=== PATIENT | female | born 1950 | race Caucasian/White ===

== ENCOUNTER 2020-10-23 12:28 | Inpatient (IN) | payer BC, MEDICARE ==
[~2020-10-23] VITALS: Ht 154.9 cm; Wt 58.0 kg
--- NOTE | 2020-10-23 14:46 | REP ---
INDICATION: sob. COMPARISON: None TECHNIQUE: Portable: The technique utilized in obtaining the radiograph has magnified the cardiac silhouette and attenuated the interstitial markings. FINDINGS: There is cardiomegaly accentuated by technique. There are bibasilar opacities right greater than left. There is irregular pleural thickening along the right lateral chest wall. The lateral border of the right scapula appears irregular . IMPRESSION: 1. Bibasilar opacities with CP angle blunting on the right as described above etiology uncertain. Chronic change versus acute disease with no priors for comparison. 2. Irregular appearing right lateral pleural thickening. 3. Suspect findings involving the lateral border of the right scapula and with no priors comparison. 4. Consider follow-up with diagnostic contrast-enhanced chest CT if clinically relevant. <Electronically signed by Teodoro Bhatia > 10/23/20 [id number]
[2020-10-23 15:05] LABS: HEMATOCRIT 31.1 % (36.0-47.0); HEMOGLOBIN 9.5 g/dl (12.0-15.5); MEAN CORPUSCULAR HEMOGLOBIN 28.3 pg (27.0-33.0); MEAN CORPUSCULAR HGB CONC 30.5 g/dl (32.0-36.5); MEAN CORPUSCULAR VOLUME 92.6 fl (80.0-96.0); PLATELET COUNT, AUTOMATED 142 10^3/uL (150-450); RED BLOOD COUNT 3.36 10^6/uL (4.00-5.40); WHITE BLOOD COUNT 10.9 10^3/uL (4.0-10.0)
[2020-10-23 15:30] LABS: ANISOCYTOSIS 1+; BASOPHILS 3 % (0-1); EOSINOPHILS 2 % (0-3); LYMPHOCYTES 37 % (16-44); METAMYELOCYTES 6 % (0-0); MONOCYTES 6 % (0-5); MYELOCYTES 1 % (0-0); NEUTROPHILS 38 % (28-66)
[2020-10-23 15:32] LABS: PLATELET ESTIMATE NORMAL (NORMAL); POLYCHROMASIA 2+
[2020-10-23 15:39] LABS: ALBUMIN 3.1 GM/DL (3.2-5.2); ALT/SGPT 126 U/L (12-78); BILIRUBIN,TOTAL 0.6 MG/DL (0.2-1.0); BLOOD UREA NITROGEN 15 MG/DL (7-18); CALCIUM LEVEL 10.6 MG/DL (8.8-10.2); CARBON DIOXIDE LEVEL 26 MEQ/L (21-32); CHLORIDE LEVEL 102 MEQ/L (98-107); CREATININE FOR GFR 0.44 MG/DL (0.55-1.30); GLOMERULAR FILTRATION RATE > 60.0 (>39); GLUCOSE, FASTING 97 MG/DL (70-100); POTASSIUM SERUM 3.7 MEQ/L (3.5-5.1); SODIUM LEVEL 140 MEQ/L (136-145); TOTAL PROTEIN 6.8 GM/DL (6.4-8.2)
[2020-10-23] MEDS ORDERED: MOM 30ML SUSPENSION UDC PO PRN (16:30)
[2020-10-23] MEDS ORDERED: oxyCODONE 5MG TAB PO ONE (16:30)
[2020-10-23] MEDS ORDERED: oxyCODONE 5MG TAB PO PRN ×2 (16:30)
[2020-10-23] MEDS ORDERED: PROMETHAZINE INJ 25 MG/ML VIAL (J2550) IV PRN (16:30)
[2020-10-23] MEDS ORDERED: amLODIPine 5 MG TAB PO PRN (16:35)
[2020-10-23] MEDS: NS 1,000 ML IV SCH (16:43)
[2020-10-23] MEDS ORDERED: ENOXAPARIN 40MG/0.4ML SYRINGE (J1650 PER 10MG) SC ONE (17:00)
[2020-10-23] MEDS: KETOROLAC 30 MG/ML 1ML VIAL IV SCH ×2 (17:45→22:03)
[2020-10-23] MEDS ORDERED: ISOSORBIDE DIN. (ISORDIL) 20 MG TAB PO SCH (18:00)
--- NOTE | 2020-10-23 19:19 | HPEPDOC ---
[facility] Medical History & Physical Date of Admission October 23, 2020 Date of Service: October 23, 2020 History and Physical CHIEF COMPLAINT: Recurrent Metastatic breast cancer to the liver, bones. Comfort measures only and hospice referral HISTORY OF PRESENT ILLNESS: 70-year-old female, DO NOT RESUSCITATE, DO NOT INTUBATE, comfort measures only with history of breast cancer status post bilateral mastectomy was sent by her pain management doctor aJneth from [place] for pain control and admission for comfort measures only and hospice referral. For the past few months, the patient has noted increasing mass in her neck and swollen lymph nodes involving the left axilla worsening back pain in the upper and lower back but has not sought any medical attention. 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 Multiple rib fractures and imaging. CT abdomen and pelvis [facility] 10/22/2020 shows diffuse metastatic disease involving musculoskeletal structure. Hepatic metastases identified and a pathologic fracture of third right inferior pubic ramus. There is a mass identified in the pelvis and the right hemisacrum extending across the midline measuring 7.8 x 3.9 cm there is a mass in the chest wall. The right chest measuring 2.2 x 1.7 cm and a soft tissue mass at the tail of the right breast measuring 3.8 x 3.3 cm extending to the skin which is thickened second mass in the anterior abdominal wall measuring 2.8 x 2.7, extending from the skin into the musculature into that region as well as in the left lower quadrant confined to the subcutaneous tissue measuring 1.[address] chest shows a large soft tissue mass encasing the right scapula extending along the right lateral chest wall encasing the area of the brachial plexus and diffuse bony metastatic disease, bilateral pleural effusions also identified. MRI of the cervical spine shows infiltrative process in the right lower paravertebral neck musculature involving the right brachial plexus. Multiple small lymph nodes in the right posterior triangle tumor versus infection. Degenerative disc disease of the cervical spine with spinal canal and neural foraminal stenosis. Patient has had the 5-10 pound weight loss at home, decreased appetite, decreased mobility, ambrosio ecially in her right upper extremity, difficulty ambulating, 5-10 feet without assistance. No syncope, chest pain, pressure, tightness, shortness of breath, fever or chills at home. She has had decrease in appetite and persistent pain in her back and arm for the past week. Hospitalist was asked to admit the patient for pain control, comfort measures only with no further evaluation PAST MEDICAL HISTORY: Breast cancer status post bilateral mastectomy 2006. Diet-controlled Diabetes. Colonic polyps PAST SURGICAL HISTORY: Bilateral mastectomy 2006, cholecystectomy, , D&C SOCIAL HISTORY: , DO NOT RESUSCITATE, DO NOT INTUBATE, comfort measures only. [facility] healthcare proxy [phone] Smoked in the 70s, none since. Denies recreational drug use FAMILY HISTORY: Mother with ovarian cancer. He lived into her 90s with hypertension, open heart surgery. Father age 90 with heart issues ALLERGIES: Please see below. REVIEW OF SYSTEMS: 10 point review of systems negative aside from positive findings in HPI HOME MEDICATIONS: Please see below. PHYSICAL EXAMINATION: VITAL SIGNS: See below GENERAL APPEARANCE: Cachectic bitemporal wasting, awake, alert, oriented to person, place, no pallor or icterus Mild distress but able to speak in full sentences HEENT: Significant lymphadenopathy in the right paraspinal musculature involving the right scapula. No JVD, thyromegaly. Dry mucous membranes CARDIOVASCULAR: S1, S2, regular rate, rhythm LUNGS: Diminished breath sounds bilaterally at the bases with crackles , Chest, right breast has a 3 cm x 3 cm soft tissue mass, nontender, mobile ABDOMEN: Positive bowel sounds, soft, nontender, nondistended, normoactive bowel sounds. 2 x 2 cm mobile mass in the left lower quadrant . EXTREMITIES NO CYANOSIS OR CLUBBING LABORATORY DATA: See below. IMAGING: [facility] CT chest, abdomen and pelvis, MRI cervical spine, all reviewed as documented in HPI MICROBIOLOGY: Please see below. ASSESSMENT: 70-year-old female, DO NOT RESUSCITATE, DO NOT INTUBATE, comfort measures only with history of breast cancer status post bilateral mastectomy was sent by her pain management doctor Janeth from [place] for pain control and admission for comfort measures only and hospice referral. For the past few months, the patient has noted increasing mass in her neck and swollen lymph nodes involving the left axilla worsening back pain in the upper and lower back but has not sought any medical attention. 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 Multiple rib fractures and imaging. CT abdomen and pelvis [facility] 10/22/2020 shows diffuse metastatic disease involving musculoskeletal structure. Hepatic metastases identified and a pathologic fracture of third right inferior pubic ramus. There is a mass identified in the pelvis and the right hemisacrum extending across the midline measuring 7.8 x 3.9 cm there is a mass in the chest wall. The right chest measuring 2.2 x 1.7 cm and a soft tissue mass at the tail of the right breast measuring 3.8 x 3.3 cm extending to the skin which is thickened second mass in the anterior abdominal wall measuring 2.8 x 2.7, extending from the skin into the musculature into that region as well as in the left lower quadrant confined to the subcutaneous tissue measuring 1.[address] chest shows a large soft tissue mass encasing the right scapula extending sarah ng the right lateral chest wall encasing the area of the brachial plexus and diffuse bony metastatic disease, bilateral pleural effusions also identified. MRI of the cervical spine shows infiltrative process in the right lower paravertebral neck musculature involving the right brachial plexus. Multiple small lymph nodes in the right posterior triangle tumor versus infection. Degenerative disc disease of the cervical spine with spinal canal and neural foraminal stenosis. Patient has had the 5-10 pound weight loss at home, decreased appetite, decreased mobility, especially in her right upper extremity, difficulty ambulating, 5-10 feet without assistance. No syncope, chest pain, pressure, tightness, shortness of breath, fever or chills at home. She has had decrease in appetite and persistent pain in her back and arm for the past week. 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 Patient is DO NOT RESUSCITATE, DO NOT INTUBATE, comfort measures only. Hospice referral in [facility] PFS to be consulted on Monday. Patient is on antiemetics when necessary pain medications. Bowel regimen and DVT prophylaxis Vital Signs Vital Signs Date Time Temp Pulse Resp B/P (MAP) Pulse Ox O2 Delivery O2 Flow Rate FiO2 10/23/20 18:13 94 17 95 Room Air 10/23/20 17:57 175/84 (114) 10/23/20 12:29 98.1 Laboratory Data Labs 24H Laboratory Tests 2 10/23/20 14:14: Immature Granulocyte % (Auto) , Neutrophils (%) (Auto) , Nucleated Red Blood Cells % (auto) 19.8H, Neutrophils 38, Band Neutrophils 7, Lymphocytes (Manual) 37, Monocytes (Manual) 6H, Eosinophils (Manual) 2, Basophils (Manual) 3H, Metamyelocytes 6H, Myelocytes 1H, Polychromasia 2+, Anisocytosis 1+, Schistocytes , Platelet Estimate NORMAL, Anion Gap 12, Glomerular Filtration Rate > 60.0, Calcium Level 10.6H, Total Bilirubin 0.6, Aspartate Amino Transf (AST/SGOT) 169H, Alanine Aminotransferase (ALT/SGPT) 126H, Alkaline Phosphatase 477H, Total Protein 6.8, Albumin 3.1L, Albumin/Globulin Ratio 0.8L CBC/BMP Laboratory Tests 10/23/20 14:14 Microbiology Microbiology 10/23/20 Respiratory Virus Panel (PCR) ([facility]) - Final, Complete Home Medications No Active Prescriptions or Reported Meds Allergies Coded Allergies: TAPE (Verified Allergy, Intermediate, rash, 10/23/20) atenolol (Verified Allergy, Unknown, 10/23/20) lisinopril (Verified Allergy, Unknown, 10/23/20) A-FIB/CHADSVASC A-FIB History Current/History of A-Fib/PAF?: No Age/Risk Factor Scoring CHADSVASC: [facility]ASC Response (Comments) Value Age Risk Factor Age 65-74 years old 1 Gender Risk Factor Female 1 Hx of CHF No 0 Hx of HTN No 0 Hx of Stroke/TIA/or VTE No 0 Hx of Diabetes Yes 1 Hx of Vascular Disease No 0 Total 3 Treatment Treatment ordered: NONE MIESHA AGUILAR MD October 23, 2020 19:19
[2020-10-23] MEDS ORDERED: ISOSORBIDE DIN. (ISORDIL) 20 MG TAB PO PRN (19:20)
[2020-10-23] MEDS ORDERED: ISOSORBIDE DIN. (ISORDIL) 30 MG TAB PO ONE (19:20)
[2020-10-23] MEDS ORDERED: **hydrALAZINE** 10 MG TAB PO PRN (19:20)
[2020-10-23 19:57] VITALS: BP 148/75
[2020-10-23] MEDS: ACETAMINOPHEN 500 MG TAB PO SCH (20:59)
[2020-10-23] MEDS: NYSTATIN 100,000 UNITS/GM TOPICAL PWD 15 GM TOP SCH (22:00)
[2020-10-23 22:04] VITALS: BP 158/71
[2020-10-24] MEDS: NS 1,000 ML IV SCH (03:53)
[2020-10-24] MEDS: KETOROLAC 30 MG/ML 1ML VIAL IV SCH ×4 (04:16→22:33)
[2020-10-24 06:00] VITALS: BP 156/67
[2020-10-24 06:36] LABS: HEMATOCRIT 25.6 % (36.0-47.0); HEMOGLOBIN 7.9 g/dl (12.0-15.5); MEAN CORPUSCULAR HEMOGLOBIN 28.4 pg (27.0-33.0); MEAN CORPUSCULAR HGB CONC 30.9 g/dl (32.0-36.5); MEAN CORPUSCULAR VOLUME 92.1 fl (80.0-96.0); PLATELET COUNT, AUTOMATED 118 10^3/uL (150-450); RED BLOOD COUNT 2.78 10^6/uL (4.00-5.40); WHITE BLOOD COUNT 9.7 10^3/uL (4.0-10.0)
[2020-10-24 07:15] LABS: BLOOD UREA NITROGEN 16 MG/DL (7-18); CALCIUM LEVEL 9.9 MG/DL (8.8-10.2); CARBON DIOXIDE LEVEL 27 MEQ/L (21-32); CHLORIDE LEVEL 104 MEQ/L (98-107); CREATININE FOR GFR 0.45 MG/DL (0.55-1.30); GLOMERULAR FILTRATION RATE > 60.0 (>39); GLUCOSE, FASTING 99 MG/DL (70-100); POTASSIUM SERUM 3.6 MEQ/L (3.5-5.1); SODIUM LEVEL 141 MEQ/L (136-145)
[2020-10-24 07:39] LABS: BASOPHILS 2 % (0-1); EOSINOPHILS 2 % (0-3); LYMPHOCYTES 32 % (16-44); METAMYELOCYTES 7 % (0-0); MONOCYTES 4 % (0-5); MYELOCYTES 5 % (0-0); NEUTROPHILS 37 % (28-66)
[2020-10-24 07:41] LABS: POLYCHROMASIA 1+
[2020-10-24 07:42] LABS: PLATELET ESTIMATE DECREASED (NORMAL); SCHISTOCYTES 1+
[2020-10-24] MEDS ORDERED: oxyCODONE 5MG TAB PO PRN (08:05)
[2020-10-24] MEDS ORDERED: **hydrALAZINE** 10 MG TAB PO PRN (08:20)
[2020-10-24] MEDS ORDERED: oxyCODONE 5MG TAB PO ONE (08:30)
[2020-10-24] MEDS ORDERED: ISOSORBIDE DIN. (ISORDIL) 20 MG TAB PO ONE (09:00)
[2020-10-24] MEDS ORDERED: SENOKOT S TAB PO ONE (09:00)
[2020-10-24] MEDS: MOM 30ML SUSPENSION UDC PO SCH ×2 (09:13→10:39)
[2020-10-24] MEDS: NYSTATIN 100,000 UNITS/GM TOPICAL PWD 15 GM TOP SCH ×2 (09:13→20:33)
[2020-10-24] MEDS: ENOXAPARIN 40MG/0.4ML SYRINGE (J1650 PER 10MG) SC SCH (09:14)
[2020-10-24] MEDS: ACETAMINOPHEN 500 MG TAB PO SCH ×3 (09:15→20:34)
[2020-10-24] MEDS: oxyCODONE 10 MG CR TAB PO SCH ×2 (09:16→20:33)
[2020-10-24 14:00] VITALS: BP 114/55
[2020-10-24] MEDS: traZODone 25MG PER 1/2 TABLET PO PRN (20:33)
[2020-10-24] MEDS: LIDOCAINE 5% (LIDODERM) PATCH TD SCH (20:34)
[2020-10-25] MEDS: KETOROLAC 30 MG/ML 1ML VIAL IV SCH ×4 (04:04→23:00)
[2020-10-25 05:05] VITALS: BP 166/67
[2020-10-25] MEDS: ACETAMINOPHEN 500 MG TAB PO SCH ×3 (08:58→20:11)
[2020-10-25] MEDS: oxyCODONE 15 MG CR TAB PO SCH ×2 (08:58→20:11)
[2020-10-25] MEDS: ENOXAPARIN 40MG/0.4ML SYRINGE (J1650 PER 10MG) SC SCH (08:59)
[2020-10-25] MEDS: NYSTATIN 100,000 UNITS/GM TOPICAL PWD 15 GM TOP SCH ×2 (08:59→20:11)
[2020-10-25] MEDS: **NOTE PATIENT COMMENT** MISC XX SCH (08:59)
[2020-10-25] MEDS ORDERED: PROMETHAZINE INJ 25 MG/ML VIAL (J2550) IV ONE (09:00)
--- NOTE | 2020-10-25 09:33 | IPNPDOC ---
Date Seen The patient was seen on 10/24/20. Progress Note S: uncontrolled pain 6/10 everywhere. right arm weak. denies f/c/n/v/d. c/o LUQ lump which is painful when touched. tolerating diet, but no appetite O: PHYSICAL EXAMINATION: VITAL SIGNS: See below GENERAL APPEARANCE: mild distress slight pallor HEENT: Significant lymphadenopathy in the right paraspinal musculature involving the right scapula. No JVD, thyromegaly. Dry mucous membranes CARDIOVASCULAR: S1, S2, regular rate, rhythm LUNGS: Diminished breath sounds bilaterally at the bases with crackles , Chest, right breast has a 3 cm x 3 cm soft tissue mass, nontender, mobile ABDOMEN: Positive bowel sounds, soft, nontender, nondistended, normoactive bowel sounds. 2 x 2 cm mobile mass in the left lower quadrant . EXTREMITIES NO CYANOSIS OR CLUBBING LABORATORY DATA: See below. IMAGING: [facility] CT chest, abdomen and pelvis, MRI cervical spine, all reviewed as documented in HPI MICROBIOLOGY: Please see below. ASSESSMENT: 70-year-old female, DO NOT RESUSCITATE, DO NOT INTUBATE, comfort measures only with history of breast cancer status post bilateral mastectomy was sent by her pain management doctor Janeth from [place] for pain control and admission for comfort measures only and hospice referral. For the past few months, the patient has noted increasing mass in her neck and swollen lymph nodes involving the left axilla worsening back pain in the upper and lower back but has not sought any medical attention. 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 Multiple rib fractures and imaging. CT abdomen and pelvis [facility] 10/22/2020 shows diffuse metastatic disease involving musculoskeletal structure. Hepatic metastases identified and a pathologic fracture of third right inferior pubic ramus. There is a mass identified in the pelvis and the right hemisacrum extending across the midline measuring 7.8 x 3.9 cm there is a mass in the chest wall. The right chest measuring 2.2 x 1.7 cm and a soft tissue mass at the tail of the right breast measuring 3.8 x 3.3 cm extending to the skin which is thickened second mass in the anterior abdominal wall measuring 2.8 x 2.7, extending from the skin into the musculature into that region as well as in the left lower quadrant confined to the subcutaneous tissue measuring 1.[address] chest shows a large soft tissue mass encasing the right scapula extending along the right lateral chest wall encasing the area of the brachial plexus and diffuse bony metastatic disease, bilateral pleural effusions also identified. MRI of the cervical spine shows infiltrative process in the right lower paravertebral neck musculature involving the right brachial plexus. Multiple small lymph nodes in the right posterior triangle tumor versus infection. Degenerative disc disease of the cervical spine with spinal canal and neural foraminal stenosis. Patient has had the 5-10 pound weight loss at home, decreased appetite, decreased mobility, especially in her right upper extremity, difficulty ambulating, 5-10 feet without assistance. No syncope, chest pain, pressure, tightness, shortness of breath, fever or chills at home. She has had decrease in appetite and persistent pain in her back and arm for the past week. 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 PLAN: [employer], DNR, DNI. admitted for pain control with uncontrolled HTN due to pain long acting oxy CR 10 mg bid, prn 5mg immediate release q4h pt encourage to take pain meds, PRN antiemetics hydralazine prn for HTN. PFS consulted for hospice referral in [facility]. stable for dc once hospice arranged. VS, I&O, 24H, Fishbone Vital Signs/I&O Vital Signs Date Time Temp Pulse Resp B/P (MAP) Pulse Ox O2 Delivery O2 Flow Rate FiO2 10/25/20 05:05 166/67 10/24/20 20:33 18 10/24/20 14:00 98.0 85 90 Room Air I&O- Last 24 Hours up to 6 AM 10/25/20 06:00 Intake Total 1230 ml Output Total 700 ml Balance 530 ml Laboratory Data Microbiology Microbiology 10/23/20 Respiratory Virus Panel (PCR) ([facility]) - Final, Complete MIESHA AGUILAR MD October 25, 2020 09:33
[2020-10-25] MEDS: ONDANSETRON 4MG/2ML VIAL IV SCH ×2 (11:46→17:10)
[2020-10-25] MEDS: traZODone 25MG PER 1/2 TABLET PO PRN (20:11)
[2020-10-25] MEDS: LIDOCAINE 5% (LIDODERM) PATCH TD SCH (20:12)
--- NOTE | 2020-10-25 21:46 | IPN ---
PROGRESS NOTE DATE: 10/25/2020 Patient complains of pain in the left upper quadrant today rated as 3/10 and some nausea. No fever or chills. Tolerating her diet but with no appetite. Patient is comfort measures only, DO NOT RESUSCITATE/DO NOT INTUBATE. No other issues per nursing overnight. OBJECTIVE: PHYSICAL EXAMINATION: Temperature 98, pulse 85, respiratory rate 16, blood pressure is 114/55, 90% on room air. Generally: Cachectic, bitemporal wasting, mild distress with no tracheal deviation, use of respiratory accessory muscles but with mild conversational dyspnea, about 8-9 words. HEENT: No jugular venous distension (JVD), thyromegaly, cervical lymphadenopathy. Dry mucous membranes. Lungs: Diminished, crackles on the right base. Heart: S1, S2, sinus rhythm. Abdomen: Soft, nontender, mass noted left upper quadrant, no rebound, guarding. Extremities: 1+ pitting edema. LABORATORY DATA: 10/24/2020 labs reviewed. ASSESSMENT AND PLAN: This is a 70-year-old female with history of bilateral breast cancer, liver, bones, comfort measures only, hospice referral, sent over from [facility] by her pain management physician for hospice care and pain control. Current issues are as follows: 1. Breast cancer status post bilateral mastectomy with possible recurrence versus new malignancy. Refusing further workup. 2. Type 2 diet controlled diabetes. 3. Colonic polyps. 4. Failure to thrive. 5. Cancer cachexia. 6. Uncontrolled hypertension. PLAN: Patient is currently comfort measures only, DO NOT RESUSCITATE/DO NOT INTUBATE. She is currently on oxycodone, increase to 15 mg twice a day. Lidoderm patch to left upper quadrant. She is currently on hydralazine 10 every 6 hours as needed for systolic pressure greater than 120. Patient and family services (PFS) has been consulted to arrange for hospice in [facility]. RADHA
[2020-10-26] MEDS: KETOROLAC 30 MG/ML 1ML VIAL IV SCH ×4 (04:04→23:00)
[2020-10-26] MEDS: ONDANSETRON 4MG/2ML VIAL IV SCH ×4 (05:49→17:15)
[2020-10-26] MEDS: ACETAMINOPHEN 500 MG TAB PO SCH ×3 (08:23→21:31)
[2020-10-26] MEDS: NYSTATIN 100,000 UNITS/GM TOPICAL PWD 15 GM TOP SCH ×2 (08:23→21:34)
[2020-10-26] MEDS: ENOXAPARIN 40MG/0.4ML SYRINGE (J1650 PER 10MG) SC SCH (08:23)
[2020-10-26] MEDS: oxyCODONE 15 MG CR TAB PO SCH ×2 (08:23→21:00)
[2020-10-26] MEDS: **NOTE PATIENT COMMENT** MISC XX SCH (08:24)
--- NOTE | 2020-10-26 11:03 | IPNPDOC ---
Date Seen The patient was seen on 10/26/20. Progress Note Addendum to progress note: Unable to be discharged today due to inability to get hospice referral in [facility] finalized today. We'll change to a SNF status until patient family services has finalized [facility] hospice referral. VS, I&O, 24H, Fishbone Vital Signs/I&O Vital Signs Date Time Temp Pulse Resp B/P (MAP) Pulse Ox O2 Delivery O2 Flow Rate FiO2 10/25/20 20:11 16 10/25/20 05:05 166/67 10/24/20 14:00 98.0 85 90 Room Air I&O- Last 24 Hours up to 6 AM 10/26/20 06:00 Intake Total 1615 ml Output Total 1200 ml Balance 415 ml Laboratory Data Microbiology Microbiology 10/23/20 Respiratory Virus Panel (PCR) ([facility]) - Final, Complete MIESHA AGUILAR MD October 26, 2020 11:03
--- NOTE | 2020-10-26 12:05 | IPN ---
PROGRESS NOTE DATE: 10/26/2020 SUBJECTIVE: The patient complains of dyspnea on exertion when she ambulates from the bed to the bathroom. She has known history of metastatic cancer with pleural effusions, refusing invasive procedures. She is currently pain controlled, does not want any of her pain medications changed. No nausea or vomiting. She is tolerating her diet. Patient has decrease in appetite but no nausea or vomiting, or diarrhea. OBJECTIVE: VITAL SIGNS: Temperature is 98, pulse is 85, respiratory rate is 16, blood pressure is 166/67, 90% on room air. GENERAL APPEARANCE: Awake, alert and oriented to person, place and time, answering questions appropriately. She has no conversational dyspnea. No pallor. No icterus. No use of respiratory accessory muscles. HEENT: Trachea is midline. No JVD or thyromegaly. Moist mucous membranes. LUNGS: Diminished, bilateral rales at the bases. HEART: S1 and S2, sinus rhythm. ABDOMEN: Soft, nontender and nondistended. Positive bowel sounds. She has a mobile mass noted under the left upper quadrant. She had bilateral mastectomies with well-healed scarring on the right. Chest wall mass noted in the left anterior chest as well. Significant lymphadenopathy on the right with scapular mobile mass which is not tender. EXTREMITIES: Motor function in the right upper extremity is 2/6 from known tumor encasing the brachial plexus. No cyanosis or clubbing. She appears cachectic with bitemporal wasting. No pitting edema. LABORATORY DATA: On 10/24: CBC and metabolic panel have been reviewed. ASSESSMENT AND PLAN: This is a 70-year-old female with a prior history of breast cancer status post bilateral mastectomy, has not received any chemotherapy or radiation. Had been seen due to increasing pain in the scapula, upper and lower back by pain management, was scanned and was found to have metastatic cancer of either recurrence from breast or a new malignancy, refusing further workup. Sent over to [facility] for Hospice referral and pain control. Current issues are as follows: 1. Breast cancer status post bilateral mastectomy with possible recurrence versus new malignancy which is metastatic. Her pain management physician has sent her over to [facility] for pain control with Hospice referral in [facility] and discharge home as soon as possible. 2. Bilateral pleural effusions on imaging study in [facility] with CT of chest, abdomen and pelvis showed significant metastatic disease involving the bones, liver and lungs. At this time, the patient is pain controlled and may be discharged home with Hospice at anytime. Patient's family services have been consulted to help in discharge plans. 3. Type 2 diet controlled diabetes, stable colonic polyps. Chronic failure to thrive and cancer cachexia due to metastatic cancer. Poor overall prognosis, currently comfort measures only. 4. Uncontrolled hypertension, for comfort patient has been given hydralazine as needed. 5. Disposition: Patient is medically stable for discharge home with Hospice as her pain well-controlled. Patient Family Services have been consulted to arrange for Hospice at home.
--- NOTE | 2020-10-26 16:12 | IPN ---
PROGRESS NOTE DATE: 10/24/2020 SUBJECTIVE: Patient still complains of 8/10 pain, but was able to sleep a little better last night. She is eating and drinking okay this morning. No shortness of breath despite malignant pleural effusions. I.V. fluids given overnight due to Toradol being administered. She has no chest pain, pressure or tightness, lightheadedness or dizziness, headache, changes in vision, diplopia despite high blood pressure 156-160. She complains of a bulge in the left lower and the left upper quadrants that bothers her when she touches it and is requesting topical pain medication. She remains Comfort Measures Only, Do Not Resuscitate, Do Not Intubate. OBJECTIVE: Vital signs: Temperature 98.7, pulse 82, respiratory rate 16, blood pressure 156/67, 94% on room air. General: Patient is cachectic with bitemporal wasting, with mild distress, no conversational dyspnea, no pallor, appears her stated age. Neck: No JVD, thyromegaly, no cervical lymphadenopathy. Lungs: Diminished, crackles bilaterally. Chest: Bilateral mastectomies, no lesions, scars are well healed. Left upper quadrant has a nodule/soft tissue mass noted along the anterior chest wall and right tail of the right breast measuring 2 x 2 cm. Extremities: No cyanosis or clubbing. Abdomen: Soft, nontender, nondistended, positive bowel sounds. LABORATORY DATA: Laboratory studies, microbiology have all been reviewed. IMAGING STUDIES: Reviewed. ASSESSMENT: 70-year-old female, Comfort Measures Only, Do Not Resuscitate, Do Not Intubate with history of breast cancer status post bilateral mastectomies now with multiple soft tissue masses and significant lymphadenopathy encasing the brachial plexus on the right and right scapula and right lateral chest wall admitted for Comfort Measures Only, DNR, DNI and Hospice referral to [facility]. IMPRESSION: 1. History of breast cancer with bilateral mastectomies with possible recurrence. 2. Bilateral malignant pleural effusions chest wall, non-significant lymphadenopathy and right chest soft tissue mass along the anterior abdominal wall. 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 3. Diet controlled diabetes. 4. Cancer. 5. Cachexia. 6. Failure to thrive. 7. History of colon polyps. 8. Constipation. PLAN: Patient is Comfort Measures Only on I.V. Toradol, acetaminophen [id number], antiemetics as needed, bowel regimen as needed. She complains of constipation today. For her uncontrolled hypertension patient has been given Isordil and hydralazine; allergic to ATENOLOL and LISINOPRIL. Trazodone for sleep. Phenergan for nausea. DFS consulted for Hospice referral [facility]. CODE STATUS: Comfort Measures Only, Do Not Resuscitate, Do Not Intubate. MTDD
[2020-10-26] MEDS: LIDOCAINE 5% (LIDODERM) PATCH TD SCH (21:00)
[2020-10-27] MEDS: ONDANSETRON 4MG/2ML VIAL IV SCH ×4 (01:04→17:58)
[2020-10-27] MEDS: KETOROLAC 30 MG/ML 1ML VIAL IV SCH ×3 (05:40→16:53)
[2020-10-27] MEDS: oxyCODONE 15 MG CR TAB PO SCH (08:17)
[2020-10-27] MEDS: ENOXAPARIN 40MG/0.4ML SYRINGE (J1650 PER 10MG) SC SCH (08:18)
[2020-10-27] MEDS: **NOTE PATIENT COMMENT** MISC XX SCH (08:18)
[2020-10-27] MEDS: ACETAMINOPHEN 500 MG TAB PO SCH ×2 (08:18→16:00)
[2020-10-27] MEDS: NYSTATIN 100,000 UNITS/GM TOPICAL PWD 15 GM TOP SCH ×2 (08:18→22:15)
[2020-10-27] MEDS ORDERED: LORazepam 1 MG TAB PO PRN (17:55)
[2020-10-27] MEDS ORDERED: ATROPINE SULFATE 1% OP SOLN 2 ML BTL SL PRN (17:55)
[2020-10-27] MEDS: MORPHINE 10MG/0.5ML ORAL CONCENTRATE SOLUTION U/D SL PRN (19:32)
[2020-10-28] MEDS: MORPHINE 10MG/0.5ML ORAL CONCENTRATE SOLUTION U/D SL PRN ×3 (02:03→12:52)
[2020-10-28] MEDS ORDERED: LIDOCAINE 5% (LIDODERM) PATCH TD ONE (02:10)
[2020-10-28] MEDS: NYSTATIN 100,000 UNITS/GM TOPICAL PWD 15 GM TOP SCH (07:19)
[2020-10-28] MEDS: ONDANSETRON 4MG/2ML VIAL IV SCH ×3 (07:19→12:00)
[2020-10-28] MEDS ORDERED: ATIV1TAB10 PO (11:57)
[2020-10-28] MEDS ORDERED: MORP20SO3 PO (11:57)
[2020-10-28] MEDS ORDERED: ATRO1OPD PO (11:57)
[2020-10-28] MEDS ORDERED: **NOTE PATIENT COMMENT** MISC XX ONE (14:09)
--- NOTE | 2020-10-28 19:08 | DS.PDOC ---
Discharge Summary General Date of Admission October 23, 2020 at 16:22 Date of Discharge 10/28/20 Attending Physician: Annalise Ash MD Discharge Summary HISTORY OF PRESENT ILLNESS: 70-year-old female, DO NOT RESUSCITATE, DO NOT INTUBATE, comfort measures only with history of breast cancer status post bilateral mastectomy was sent by her pain management doctor Janeth from [place] for pain control and admission for comfort measures only and hospice referral. For the past few months, the patient has noted increasing mass in her neck and swollen lymph nodes involving the left axilla worsening back pain in the upper and lower back but has not sought any medical attention. 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 Multiple rib fractures and imaging. CT abdomen and pelvis [facility] 10/22/2020 shows diffuse metastatic disease involving musculoskeletal structure. Hepatic metastases identified and a pathologic fracture of third right inferior pubic ramus. There is a mass identified in the pelvis and the right hemisacrum extending across the midline measuring 7.8 x 3.9 cm there is a mass in the chest wall. The right chest measuring 2.2 x 1.7 cm and a soft tissue mass at the tail of the right breast measuring 3.8 x 3.3 cm extending to the skin which is thickened second mass in the anterior abdominal wall measuring 2.8 x 2.7, extending from the skin into the musculature into that region as well as in the left lower quadrant confined to the subcutaneous tissue measuring 1.[address] chest shows a large soft tissue mass encasing the right scapula extending along the right lateral chest wall encasing the area of the brachial plexus and diffuse bony metastatic disease, bilateral pleural effusions also identified. MRI of the cervical spine shows infiltrative process in the right lower paravertebral neck musculature involving the right brachial plexus. Multiple small lymph nodes in the right posterior triangle tumor versus infection. Degenerative disc disease of the cervical spine with spinal canal and neural foraminal stenosis. Patient has had the 5-10 pound weight loss at home, decreased appetite, decreased mobility, especially in her right upper extremity, difficulty ambulating, 5-10 feet without assistance. No syncope, chest pain, pressure, tightness, shortness of breath, fever or chills at home. She has had decrease in appetite and persistent pain in her back and arm for the past week. Hospitalist was asked to admit the patient for pain control, comfort measures only with no further evaluation HOSPITAL COURSE: Pain control was obtained early on with topical and PO medications. Hospice was decided on early on in admission, patient was made [employer]. She was eating and drinking, despite malignant pleural effusions and increased SOB. She has no chest pain, pressure or tightness, lightheadedness or dizziness, headache, chen es in vision, diplopia despite high blood pressure 156-160 mmHg. She complained of a bulge in the left lower and the left upper quadrants that bothers her when she touches it . On 10/28/20 patient was discharged home with [facility], who will f/u with her closely. PAST MEDICAL HISTORY: Breast cancer status post bilateral mastectomy 2006. Diet-controlled Diabetes. Colonic polyps PAST SURGICAL HISTORY: Bilateral mastectomy 2006, cholecystectomy, , D&C SOCIAL HISTORY: DO NOT RESUSCITATE, DO NOT INTUBATE, comfort measures only. [facility] healthcare proxy [phone] Smoked in the 70s, none since. Denies recreational drug use FAMILY HISTORY: Mother with ovarian cancer. He lived into her 90s with hypertension, open heart surgery. Father age 90 with heart issues DISCHARGE MEDS: PLEASE SEE BELOW PHYSICAL EXAM: Vital signs: Please see below General: Patient is cachectic with bitemporal wasting, with mild distress, no conversational dyspnea, no pallor, appears her stated age. Neck: No JVD, thyromegaly, no cervical lymphadenopathy. Lungs: Diminished, crackles bilaterally. Chest: Bilateral mastectomies, no lesions, scars are well healed. Left upper quadrant has a nodule/soft tissue mass noted along the anterior chest wall and right tail of the right breast measuring 2 x 2 cm. Extremities: No cyanosis or clubbing. Abdomen: Soft, nontender, nondistended, positive bowel sounds. LABORATORY DATA: Laboratory studies, microbiology have all been reviewed. IMAGING STUDIES: Reviewed. ASSESSMENT: 70-year-old female, Comfort Measures Only, Do Not Resuscitate, Do Not Intubate with history of breast cancer status post bilateral mastectomies now with multiple soft tissue masses and significant lymphadenopathy encasing the brachial plexus on the right and right scapula and right lateral chest wall admitted for Comfort Measures Only, DNR, DNI. Discharging home with Hospice today. DISCHARGE DIAGNOSES: 1. Breast cancer with bilateral mastectomies with possible recurrence. 2. Bilateral malignant pleural effusions chest wall, non-significant lymphadenopathy and right chest soft tissue mass along the anterior abdominal wall. 3. 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 4. Diet controlled diabetes. 5. Cancer. 6. Cachexia. 7. Failure to thrive. 8. History of colon polyps. 9. Constipation. PLAN: D/c home with [facility] referral [facility]. [employer] TIME SPENT ON DISCHARGE: 35 minutes. Vital Signs/I&Os Vital Signs Date Time Temp Pulse Resp B/P (MAP) Pulse Ox O2 Delivery O2 Flow Rate FiO2 10/28/20 02:03 18 10/25/20 05:05 166/67 10/24/20 14:00 98.0 85 90 Room Air I&O- Last 24 Hours up to 6 AM 10/28/20 05:59 Intake Total 900 ml Output Total 450 ml Balance 450 ml Microbiology Microbiology 10/28/20 Respiratory Virus Panel (PCR) ([facility]) - Final, Complete 10/23/20 Respiratory Virus Panel (PCR) ([facility]) - Final, Complete Discharge Medications Scheduled PRN Atropine Sulfate (Atropine Sulfate) 1% 2ML Drops, 2-3 DROP PO Q3HP PRN for TERMINAL SECRETIONS Use sublingually if unable to swallow MDD = 36 drops Lorazepam (Ativan) 0.5 Mg Tablet, 0.5 MG PO Q4-6HP PRN for anxiety Morphine Sulfate (Morphine Sulfate) 100 Mg/5 Ml Solution, 0.25-1 ML PO Q2H PRN for PAIN OR DYSPNEA Use sublingually if unable to swallow Allergies Coded Allergies: TAPE (Verified Allergy, Intermediate, rash, 10/23/20) atenolol (Verified Allergy, Unknown, 10/23/20) lisinopril (Verified Allergy, Unknown, 10/23/20) Annalise Ash MD October 28, 2020 19:08
== END 2020-10-28 15:03 | disposition hospice, home (50) | DRG 862 ==
LOC: M ED 12:28 → M ED INP 16:22 → ENRESERV 18:56 → M MSPAV 19:57
PROVIDERS: ADMIT General Practice; ATTEND Internal Medicine
DX: Z51.5 Encounter for palliative care (principal); J91.0 Malignant pleural effusion; R64 Cachexia; C78.01 Secondary malignant neoplasm of right lung; C78.02 Secondary malignant neoplasm of left lung; C77.9 Secondary and unspecified malignant neoplasm of lymph node, unspecified; C79.51 Secondary malignant neoplasm of bone; C78.7 Secondary malignant neoplasm of liver and intrahepatic bile duct; C79.2 Secondary malignant neoplasm of skin; C50.911 Malignant neoplasm of unspecified site of right female breast; E11.9 Type 2 diabetes mellitus without complications; R62.7 Adult failure to thrive; I10 Essential (primary) hypertension; Z66 Do not resuscitate; Z79.899 Other long term (current) drug therapy; Z88.8 Allergy status to other drugs, medicaments and biological substances